=== PATIENT | male | born 1965 | race Hispanic/Latino ===

== ENCOUNTER → 2023-02-26 | Outpatient (CLI) | payer OTHER | LOC: US 07:19 | PROVIDERS: ATTEND Family Medicine | DX: I10 Essential (primary) hypertension (principal); R10.0 Acute abdomen | CPT/HCPCS: 71046; 76700 ==

== ENCOUNTER → 2023-03-25 | Outpatient (CLI) | payer OTHER | LOC: RAD 07:15 | PROVIDERS: ATTEND Family Medicine | DX: M25.562 Pain in left knee (principal); M25.561 Pain in right knee ==

== ENCOUNTER 2023-05-14 16:25 | Inpatient (IN) | payer OTHER ==
[~2023-05-14] VITALS: Ht 167.6 cm; Wt 129.4 kg
[2023-05-14 17:14] LABS: BASOPHILS % 0.2 % (0.0-1.0); EOSINOPHILS # (AUTO) 0.1 (0.0-0.4); EOSINOPHILS % 0.3 % (0.0-6.0); HEMATOCRIT 37.3 % (38.2-49.6); HEMOGLOBIN 12.9 g/dL (14.0-18.0); LYMPHOCYTES # (AUTO) 2.5 (1.0-3.2); LYMPHOCYTES % 13.8 % (18.0-39.1); MEAN CORPUSCULAR HEMOGLOBIN 33.5 pg (28-32); MEAN CORPUSCULAR HGB CONC 34.6 g/dL (31-35); MEAN CORPUSCULAR VOLUME 96.9 fL (81-99); MONOCYTES # (AUTO) 1.3 (0.2-0.8); MONOCYTES % 7.2 % (4.4-11.3); NEUTROPHILS # (AUTO) 14.3 (2.1-6.9); NEUTROPHILS % 77.7 % (38.7-80.0); PLATELET COUNT 203 x10e3/uL (140-360); RED BLOOD COUNT 3.85 x10e6/uL (4.3-5.7); RED CELL DISTRIBUTION WIDTH 13.1 % (11.7-14.4)
[2023-05-14] MEDS ORDERED: Vancomycin IV 1 GM in SODIUM CHLORIDE 0.9% 250ML 250 ML IV ONE (17:15)
[2023-05-14 17:23] LABS: INR 0.9; PROTHROMBIN TIME 12.7 seconds (11.9-14.5)
[2023-05-14 17:24] LABS: PARTIAL THROMBOPLASTIN TIME 26.4 seconds (23.8-35.5)
[2023-05-14 17:32] LABS: ALANINE AMINOTRANSFERASE 88 IU/L (0-55); ALBUMIN 3.5 g/dL (3.5-5.0); ALBUMIN/GLOBULIN RATIO 0.9 (0.8-2.0); ALKALINE PHOSPHATASE 74 IU/L (40-150); ANION GAP 17.9 mmol/L (8-16); BLOOD UREA NITROGEN 27 mg/dL (7-26); BUN/CREATININE RATIO 21 (6-25); CALCIUM 8.7 mg/dL (8.4-10.2); CARBON DIOXIDE 24 mmol/L (22-29); CHLORIDE 102 mmol/L (98-107); CREATINE KINASE 60 IU/L (30-200); CREATININE, SERUM 1.31 mg/dL (0.72-1.25); GLUCOSE 243 mg/dL (74-118); POTASSIUM 3.9 mmol/L (3.5-5.1); SODIUM 140 mmol/L (136-145)
[2023-05-14] MEDS ORDERED: SODIUM CHLORIDE FLUSH 10 ML SYR INJ PRN (18:15)
[2023-05-14] MEDS ORDERED: ONDANSETRON HCL INJ 2MG/ML 2ML 2 MG/ML VIAL IV PRN (18:15)
[2023-05-14 19:12] VITALS: PULSE 110; RESP 20; O2SAT 98
[2023-05-14 20:52] VITALS: BP 131/97; PULSE 100; RESP 20; TEMP 97.8; O2SAT 98
[2023-05-14 21:00] VITALS: BP 131/97; PULSE 100; RESP 20; TEMP 97.8; O2SAT 98
[2023-05-15] VITALS (9 sets, daily range): BP systolic 129–148; BP diastolic 90–99; PULSE 78–95; RESP 18–22; TEMP 97.3–98.4; O2SAT 96–99
[2023-05-15] MEDS ORDERED: COLCHICINE0.6 M1 PO (01:12)
[2023-05-15] MEDS ORDERED: LOSARTAN POTAS100 MG PO (01:12)
[2023-05-15] MEDS ORDERED: FUROSEMIDE20 MG PO (01:12)
[2023-05-15] MEDS ORDERED: LEVOTHYROXINE50 MCG PO (01:12)
[2023-05-15] MEDS ORDERED: ALLOPURINOL100 MG PO (01:12)
[2023-05-15] MEDS ORDERED: Vancomycin IV 1 GM in SODIUM CHLORIDE 0.9% 250ML 250 ML IV SCH (06:00)
[2023-05-15] MEDS ORDERED: Vancomycin IV 1 GM in SODIUM CHLORIDE 0.9% 250ML 250 ML IV ONE (06:00)
[2023-05-15 06:11] LABS: BASOPHILS % 0.2 % (0.0-1.0); EOSINOPHILS % 0.2 % (0.0-6.0); HEMATOCRIT 32.4 % (38.2-49.6); HEMOGLOBIN 11.1 g/dL (14.0-18.0); LYMPHOCYTES # (AUTO) 1.6 (1.0-3.2); LYMPHOCYTES % 13.3 % (18.0-39.1); MEAN CORPUSCULAR HEMOGLOBIN 33.2 pg (28-32); MEAN CORPUSCULAR HGB CONC 34.3 g/dL (31-35); MONOCYTES # (AUTO) 0.7 (0.2-0.8); NEUTROPHILS # (AUTO) 9.7 (2.1-6.9); NEUTROPHILS % 79.3 % (38.7-80.0); PLATELET COUNT 174 x10e3/uL (140-360); RED BLOOD COUNT 3.34 x10e6/uL (4.3-5.7); RED CELL DISTRIBUTION WIDTH 12.9 % (11.7-14.4)
[2023-05-15 07:02] LABS: CALCIUM 8.6 mg/dL (8.4-10.2); CREATININE, SERUM 0.98 mg/dL (0.72-1.25)
[2023-05-15 07:21] LABS: CREATINE KINASE 60 IU/L (30-200)
[2023-05-15] MEDS: FUROSEMIDE 20 MG TAB PO SCH (08:33)
[2023-05-15] MEDS: COLCHICINE 0.6 MG TAB PO SCH ×2 (08:34→16:28)
[2023-05-15] MEDS: PANTOPRAZOLE SOD 40 MG TABEC PO SCH (08:34)
[2023-05-15] MEDS: ALLOPURINOL 100 MG TAB PO SCH (08:34)
[2023-05-15] MEDS: LEVOTHYROXINE SODIUM 50 MCG TAB PO SCH (08:34)
[2023-05-15] MEDS: LOSARTAN POTASSIUM 100 MG TAB PO SCH (08:34)
[2023-05-15] MEDS: Vancomycin IV 1 GM in SODIUM CHLORIDE 0.9% 250ML 250 ML IV SCH (15:18)
[2023-05-16] VITALS (7 sets, daily range): BP systolic 121–160; BP diastolic 62–94; PULSE 71–110; RESP 18–22; TEMP 97.9–98.4; O2SAT 93–98
[2023-05-16] MEDS: Vancomycin IV 1 GM in SODIUM CHLORIDE 0.9% 250ML 250 ML IV SCH ×2 (04:11→16:09)
[2023-05-16] MEDS: MUPIROCIN 2% OINT 22 GM TUBE TOP SCH (08:48)
[2023-05-16] MEDS: FUROSEMIDE 20 MG TAB PO SCH (08:48)
[2023-05-16] MEDS: LEVOTHYROXINE SODIUM 50 MCG TAB PO SCH (08:48)
[2023-05-16] MEDS: PANTOPRAZOLE SOD 40 MG TABEC PO SCH (08:48)
[2023-05-16] MEDS: COLCHICINE 0.6 MG TAB PO SCH ×2 (08:48→16:09)
[2023-05-16] MEDS: LOSARTAN POTASSIUM 100 MG TAB PO SCH (08:49)
[2023-05-16] MEDS: ALLOPURINOL 100 MG TAB PO SCH (08:49)
[2023-05-16] MEDS: TRIAMCINOLONE ACET 0.1% CREAM 15 GM TUBE TOP SCH (11:55)
[2023-05-17] VITALS (7 sets, daily range): BP systolic 120–144; BP diastolic 68–92; PULSE 82–133; RESP 18–22; TEMP 98–98.9; O2SAT 95–100
[2023-05-17] MEDS: Vancomycin IV 1 GM in SODIUM CHLORIDE 0.9% 250ML 250 ML IV SCH ×2 (04:05→15:48)
[2023-05-17] MEDS: PANTOPRAZOLE SOD 40 MG TABEC PO SCH (09:06)
[2023-05-17] MEDS: LEVOTHYROXINE SODIUM 50 MCG TAB PO SCH (09:06)
[2023-05-17] MEDS: COLCHICINE 0.6 MG TAB PO SCH ×2 (09:07→15:56)
[2023-05-17] MEDS: LOSARTAN POTASSIUM 100 MG TAB PO SCH (09:07)
[2023-05-17] MEDS: FUROSEMIDE 20 MG TAB PO SCH (09:07)
[2023-05-17] MEDS: ALLOPURINOL 100 MG TAB PO SCH (09:07)
[2023-05-17] MEDS: TRIAMCINOLONE ACET 0.1% CREAM 15 GM TUBE TOP SCH (09:08)
[2023-05-17] MEDS: MUPIROCIN 2% OINT 22 GM TUBE TOP SCH (09:08)
[2023-05-18] VITALS (9 sets, daily range): BP systolic 97–136; BP diastolic 70–97; PULSE 100–118; RESP 18–22; TEMP 97.7–98.4; O2SAT 95–98
[2023-05-18] MEDS: Vancomycin IV 1 GM in SODIUM CHLORIDE 0.9% 250ML 250 ML IV SCH ×2 (04:06→17:18)
[2023-05-18] MEDS: LEVOTHYROXINE SODIUM 50 MCG TAB PO SCH (09:11)
[2023-05-18] MEDS: PANTOPRAZOLE SOD 40 MG TABEC PO SCH (09:11)
[2023-05-18] MEDS: COLCHICINE 0.6 MG TAB PO SCH ×2 (09:11→16:15)
[2023-05-18] MEDS: LOSARTAN POTASSIUM 100 MG TAB PO SCH (09:11)
[2023-05-18] MEDS: FUROSEMIDE 20 MG TAB PO SCH (09:12)
[2023-05-18] MEDS: ALLOPURINOL 100 MG TAB PO SCH (09:12)
[2023-05-18] MEDS: MUPIROCIN 2% OINT 22 GM TUBE TOP SCH (09:13)
[2023-05-18] MEDS: TRIAMCINOLONE ACET 0.1% CREAM 15 GM TUBE TOP SCH (09:13)
[2023-05-18] MEDS ORDERED: METOPROLOL TARTRATE INJ 1 MG/ML VIAL IV ONE (13:16)
[2023-05-18] MEDS ORDERED: ENOXAPARIN SODIUM INJ 100 MG/ML SYR SC ONE (13:16)
[2023-05-18] MEDS: HYDROCODONE/APAP 7.5MG-325MG 1 EA TAB PO PRN (14:10)
[2023-05-18 14:33] LABS: BASOPHILS % 0.5 % (0.0-1.0); EOSINOPHILS # (AUTO) 0.2 (0.0-0.4); HEMATOCRIT 39.8 % (38.2-49.6); HEMOGLOBIN 13.3 g/dL (14.0-18.0); LYMPHOCYTES # (AUTO) 2.5 (1.0-3.2); LYMPHOCYTES % 34.3 % (18.0-39.1); MEAN CORPUSCULAR HEMOGLOBIN 33.4 pg (28-32); MEAN CORPUSCULAR HGB CONC 33.4 g/dL (31-35); MONOCYTES # (AUTO) 0.9 (0.2-0.8); MONOCYTES % 12.2 % (4.4-11.3); NEUTROPHILS # (AUTO) 3.5 (2.1-6.9); NEUTROPHILS % 47.5 % (38.7-80.0); PLATELET COUNT 224 x10e3/uL (140-360); RED BLOOD COUNT 3.98 x10e6/uL (4.3-5.7); RED CELL DISTRIBUTION WIDTH 12.7 % (11.7-14.4)
[2023-05-18 14:49] LABS: ANION GAP 18.6 mmol/L (8-16); CALCIUM 9.7 mg/dL (8.4-10.2); CREATININE, SERUM 1.48 mg/dL (0.72-1.25); POTASSIUM 3.6 mmol/L (3.5-5.1)
[2023-05-19] VITALS (9 sets, daily range): BP systolic 97–128; BP diastolic 67–86; PULSE 107–117; RESP 18–20; TEMP 97.7–98.4; O2SAT 93–98
[2023-05-19] MEDS: Vancomycin IV 1 GM in SODIUM CHLORIDE 0.9% 250ML 250 ML IV SCH (03:53)
[2023-05-19] MEDS: PANTOPRAZOLE SOD 40 MG TABEC PO SCH (09:26)
[2023-05-19] MEDS: LEVOTHYROXINE SODIUM 50 MCG TAB PO SCH (09:26)
[2023-05-19] MEDS: COLCHICINE 0.6 MG TAB PO SCH ×2 (09:26→16:50)
[2023-05-19] MEDS: LOSARTAN POTASSIUM 100 MG TAB PO SCH (09:27)
[2023-05-19] MEDS: ALLOPURINOL 100 MG TAB PO SCH (09:27)
[2023-05-19] MEDS: FUROSEMIDE 20 MG TAB PO SCH (09:27)
[2023-05-19] MEDS: MUPIROCIN 2% OINT 22 GM TUBE TOP SCH (09:30)
[2023-05-19] MEDS: TRIAMCINOLONE ACET 0.1% CREAM 15 GM TUBE TOP SCH (09:31)
[2023-05-19 10:25] LABS: FREE THYROXINE INDEX 3.1865 (1.4-3.8); THYROID STIMULATING HORMONE 2.516 uIU/mL (0.350-4.940)
[2023-05-19] MEDS ORDERED: GLIMEPIRIDE 2 MG TAB PO ONE (11:30)
[2023-05-19] MEDS: INSULIN LISPRO 100 UNIT/1 ML 3ML VIAL SQ SCH ×3 (12:04→21:00)
[2023-05-19] MEDS ORDERED: ONDANSETRON HCL 4 MG ORAL DISINTEGRATING TAB PO PRN (13:15)
[2023-05-19] MEDS ORDERED: Vancomycin IV 1 GM in SODIUM CHLORIDE 0.9% 250ML 250 ML IV SCH (16:00)
[2023-05-19] MEDS: METFORMIN HCL 500 MG TAB PO SCH (16:50)
[2023-05-19] MEDS: ENOXAPARIN SOD INJ 40 MG/0.4 ML SYR SC SCH (16:51)
[2023-05-19] MEDS ORDERED: SITAGLIPTIN 100 MG TAB PO SCH (17:00)
[2023-05-19] MEDS ORDERED: ENOXAPARIN SOD INJ 40 MG/0.4 ML SYR SC SCH (17:00)
[2023-05-19] MEDS: HYDROCODONE/APAP 7.5MG-325MG 1 EA TAB PO PRN (17:03)
[2023-05-20] VITALS (8 sets, daily range): BP systolic 90–124; BP diastolic 62–76; PULSE 90–112; RESP 19–22; TEMP 97.7–98.8; O2SAT 96–99
[2023-05-20] MEDS: ENOXAPARIN SOD INJ 40 MG/0.4 ML SYR SC SCH ×2 (05:42→17:22)
[2023-05-20 06:18] LABS: ANION GAP 14.4 mmol/L (8-16); CALCIUM 8.7 mg/dL (8.4-10.2); CREATININE, SERUM 1.44 mg/dL (0.72-1.25); POTASSIUM 3.4 mmol/L (3.5-5.1)
[2023-05-20 06:57] LABS: CHOL/HDL RATIO 7.6 (3.9-4.7)
[2023-05-20] MEDS: INSULIN LISPRO 100 UNIT/1 ML 3ML VIAL SQ SCH ×4 (07:30→20:40)
[2023-05-20] MEDS: LOSARTAN POTASSIUM 100 MG TAB PO SCH (09:26)
[2023-05-20] MEDS: MUPIROCIN 2% OINT 22 GM TUBE TOP SCH (09:26)
[2023-05-20] MEDS: ALLOPURINOL 100 MG TAB PO SCH (09:27)
[2023-05-20] MEDS: COLCHICINE 0.6 MG TAB PO SCH ×2 (09:27→17:22)
[2023-05-20] MEDS: METFORMIN HCL 500 MG TAB PO SCH ×2 (09:27→17:22)
[2023-05-20] MEDS: LEVOTHYROXINE SODIUM 50 MCG TAB PO SCH (09:27)
[2023-05-20] MEDS: PANTOPRAZOLE SOD 40 MG TABEC PO SCH (09:27)
[2023-05-20] MEDS: ASPIRIN 81 MG CHEW TAB PO SCH (09:34)
[2023-05-20] MEDS: CARVEDILOL 12.5 MG TAB PO SCH ×2 (09:34→17:00)
[2023-05-20] MEDS: TRIAMCINOLONE ACET 0.1% CREAM 15 GM TUBE TOP SCH (09:36)
[2023-05-20] MEDS: FUROSEMIDE INJ 10 MG/ML 4 ML VIAL IV SCH ×2 (11:41→17:21)
[2023-05-20] MEDS: DOXYCYCLINE HYCLATE TABLET 100 MG TAB PO SCH ×2 (15:11→21:19)
[2023-05-20] MEDS: EZETIMIBE 10 MG TAB PO SCH (21:19)
[2023-05-20] MEDS: ATORVASTATIN 20 MG TAB PO SCH (21:19)
[2023-05-21] VITALS (13 sets, daily range): BP systolic 98–109; BP diastolic 56–85; PULSE 78–113; RESP 16–21; TEMP 97.7–98.7; O2SAT 96–99
[2023-05-21] MEDS: ENOXAPARIN SOD INJ 40 MG/0.4 ML SYR SC SCH ×2 (05:41→16:52)
[2023-05-21] MEDS: INSULIN LISPRO 100 UNIT/1 ML 3ML VIAL SQ SCH ×4 (07:30→20:41)
[2023-05-21] MEDS: COLCHICINE 0.6 MG TAB PO SCH ×2 (08:38→16:52)
[2023-05-21] MEDS: LEVOTHYROXINE SODIUM 50 MCG TAB PO SCH (08:38)
[2023-05-21] MEDS: ASPIRIN 81 MG CHEW TAB PO SCH (08:38)
[2023-05-21] MEDS: ALLOPURINOL 100 MG TAB PO SCH (08:39)
[2023-05-21] MEDS: CARVEDILOL 12.5 MG TAB PO SCH ×2 (08:39→16:53)
[2023-05-21] MEDS: FUROSEMIDE INJ 10 MG/ML 4 ML VIAL IV SCH ×2 (08:39→16:52)
[2023-05-21] MEDS: DOXYCYCLINE HYCLATE TABLET 100 MG TAB PO SCH ×2 (08:39→21:12)
[2023-05-21] MEDS: MUPIROCIN 2% OINT 22 GM TUBE TOP SCH (08:41)
[2023-05-21] MEDS: TRIAMCINOLONE ACET 0.1% CREAM 15 GM TUBE TOP SCH (08:41)
[2023-05-21] MEDS: LOSARTAN POTASSIUM 100 MG TAB PO SCH (08:45)
[2023-05-21] MEDS: PANTOPRAZOLE SOD 40 MG TABEC PO SCH (08:55)
[2023-05-21] MEDS: METFORMIN HCL 500 MG TAB PO SCH ×2 (08:55→16:52)
[2023-05-21] MEDS ORDERED: SODIUM CHLORIDE 0.9% 500ML 500 ML IV ONE (09:45)
[2023-05-21] MEDS ORDERED: HEPARIN SOD (PORCINE) 1000 UNIT/ML 30ML ONE (10:34)
[2023-05-21] MEDS ORDERED: LIDOCAINE HCL 2% LOCAL 20 ML VIAL ONE (10:34)
[2023-05-21] MEDS ORDERED: NITROGLYCERIN/D5W 200 MCG/ML 250 ML ONE (10:35)
[2023-05-21] MEDS ORDERED: IOPAMIDOL 370 MG/ML 100 ML INFUS..BTL INJ ONE (10:35)
[2023-05-21] MEDS ORDERED: SODIUM CHLORIDE 0.9% 1000ML 1,000 ML ONE (10:35)
[2023-05-21] MEDS ORDERED: HEPARIN SOD/SOD CHLORIDE 2,000 ML ONE (10:35)
[2023-05-21] MEDS ORDERED: VERAPAMIL HCL 2.5 MG/ML 2 ML VIAL ONE (10:54)
[2023-05-21] MEDS ORDERED: MIDAZOLAM HCL 2 MG/2 ML VIAL ONE (10:57)
[2023-05-21] MEDS ORDERED: FENTANYL CITRATE/PF 100MCG/2 ML INJ ONE (10:58)
[2023-05-21] MEDS: EZETIMIBE 10 MG TAB PO SCH (21:12)
[2023-05-21] MEDS: ATORVASTATIN 20 MG TAB PO SCH (21:12)
[2023-05-22] VITALS (8 sets, daily range): BP systolic 82–110; BP diastolic 57–83; PULSE 97–114; RESP 18–20; TEMP 97.5–98.4; O2SAT 95–100
[2023-05-22 05:41] LABS: BASOPHILS % 0.4 % (0.0-1.0); EOSINOPHILS # (AUTO) 0.3 (0.0-0.4); EOSINOPHILS % 5.2 % (0.0-6.0); HEMATOCRIT 35.9 % (38.2-49.6); HEMOGLOBIN 12.2 g/dL (14.0-18.0); LYMPHOCYTES # (AUTO) 1.4 (1.0-3.2); LYMPHOCYTES % 26.8 % (18.0-39.1); MEAN CORPUSCULAR HEMOGLOBIN 33.3 pg (28-32); MEAN CORPUSCULAR VOLUME 98.1 fL (81-99); MONOCYTES # (AUTO) 0.7 (0.2-0.8); MONOCYTES % 14.4 % (4.4-11.3); NEUTROPHILS # (AUTO) 2.7 (2.1-6.9); PLATELET COUNT 178 x10e3/uL (140-360); RED BLOOD COUNT 3.66 x10e6/uL (4.3-5.7); RED CELL DISTRIBUTION WIDTH 12.4 % (11.7-14.4)
[2023-05-22] MEDS: ENOXAPARIN SOD INJ 40 MG/0.4 ML SYR SC SCH ×2 (06:20→17:15)
[2023-05-22 06:22] LABS: ALBUMIN 3.2 g/dL (3.5-5.0); ALBUMIN/GLOBULIN RATIO 0.9 (0.8-2.0); CALCIUM 8.3 mg/dL (8.4-10.2); CREATININE, SERUM 1.72 mg/dL (0.72-1.25)
[2023-05-22] MEDS: INSULIN LISPRO 100 UNIT/1 ML 3ML VIAL SQ SCH ×4 (07:30→20:41)
[2023-05-22] MEDS ORDERED: POTASSIUM CHLORIDE 20 MEQ TAB CR PO ONE (08:15)
[2023-05-22] MEDS: CARVEDILOL 12.5 MG TAB PO SCH ×3 (09:00→17:00)
[2023-05-22] MEDS: PANTOPRAZOLE SOD 40 MG TABEC PO SCH (09:17)
[2023-05-22] MEDS: DOXYCYCLINE HYCLATE TABLET 100 MG TAB PO SCH ×2 (09:17→20:42)
[2023-05-22] MEDS: POTASSIUM CHLORIDE 20 MEQ TAB CR PO SCH ×2 (09:17→11:25)
[2023-05-22] MEDS: LEVOTHYROXINE SODIUM 50 MCG TAB PO SCH (09:17)
[2023-05-22] MEDS: ASPIRIN 81 MG CHEW TAB PO SCH (09:17)
[2023-05-22] MEDS: METFORMIN HCL 500 MG TAB PO SCH ×2 (09:18→17:15)
[2023-05-22] MEDS: ALLOPURINOL 100 MG TAB PO SCH (09:18)
[2023-05-22] MEDS: LOSARTAN POTASSIUM 100 MG TAB PO SCH (09:18)
[2023-05-22] MEDS: MUPIROCIN 2% OINT 22 GM TUBE TOP SCH (09:21)
[2023-05-22] MEDS: TRIAMCINOLONE ACET 0.1% CREAM 15 GM TUBE TOP SCH (09:21)
[2023-05-22] MEDS ORDERED: SODIUM CHLORIDE 0.9% 250ML 250 ML ONE (11:42)
[2023-05-22] MEDS ORDERED: SODIUM CHLORIDE 0.9% 250ML 250 ML IV ONE (11:45)
[2023-05-22] MEDS ORDERED: SODIUM CHLORIDE 0.9% 250ML 200 ML IV ONE (12:15)
[2023-05-22] MEDS ORDERED: SODIUM CHLORIDE 0.9% 250ML 250 ML IV SCH (14:00)
[2023-05-23 00:58] VITALS: BP 108/82; PULSE 109; RESP 19; TEMP 98.4; O2SAT 97
[2023-05-23] MEDS: ENOXAPARIN SOD INJ 40 MG/0.4 ML SYR SC SCH ×2 (05:54→17:48)
[2023-05-23 06:45] VITALS: BP 97/64; PULSE 110; RESP 16; TEMP 98.3; O2SAT 96
[2023-05-23] MEDS: INSULIN LISPRO 100 UNIT/1 ML 3ML VIAL SQ SCH ×3 (07:30→16:09)
[2023-05-23] MEDS ORDERED: DOXYCYCLINE HY100 MG PO (08:01)
[2023-05-23] MEDS ORDERED: METFORMIN HCL500 MG PO (08:01)
[2023-05-23] MEDS ORDERED: ASPIRIN CHEW81 MG PO (08:01)
[2023-05-23] MEDS ORDERED: PANTOPRAZOLE SO40 MG PO (08:01)
[2023-05-23] MEDS: DOXYCYCLINE HYCLATE TABLET 100 MG TAB PO SCH (08:15)
[2023-05-23] MEDS: LOSARTAN POTASSIUM 100 MG TAB PO SCH (08:16)
[2023-05-23] MEDS: LEVOTHYROXINE SODIUM 50 MCG TAB PO SCH (08:16)
[2023-05-23] MEDS: ALLOPURINOL 100 MG TAB PO SCH (08:16)
[2023-05-23] MEDS: CARVEDILOL 12.5 MG TAB PO SCH (08:17)
[2023-05-23] MEDS: ASPIRIN 81 MG CHEW TAB PO SCH (08:17)
[2023-05-23] MEDS: METFORMIN HCL 500 MG TAB PO SCH ×2 (08:18→17:42)
[2023-05-23] MEDS: PANTOPRAZOLE SOD 40 MG TABEC PO SCH (08:18)
[2023-05-23] MEDS: TRIAMCINOLONE ACET 0.1% CREAM 15 GM TUBE TOP SCH (08:19)
[2023-05-23 08:30] VITALS: BP 111/80; PULSE 108; RESP 20; TEMP 98.2; O2SAT 97
[2023-05-23 08:31] VITALS: BP 97/64; PULSE 110; RESP 16; TEMP 98.3; O2SAT 96
[2023-05-23] MEDS ORDERED: FUROSEMIDE 40 MG TAB PO SCH (09:00)
[2023-05-23 11:30] LABS: ANION GAP 19.8 mmol/L (8-16); CALCIUM 8.2 mg/dL (8.4-10.2); CREATININE, SERUM 1.67 mg/dL (0.72-1.25); POTASSIUM 3.8 mmol/L (3.5-5.1)
[2023-05-23 12:31] VITALS: BP 98/70; PULSE 104; RESP 20; TEMP 97.7; O2SAT 98
[2023-05-23 15:50] VITALS: BP 96/74; PULSE 103; RESP 20; TEMP 97.8; O2SAT 96
[2023-05-23] MEDS ORDERED: COZAAR100 MG PO (18:34)
[2023-05-23] MEDS ORDERED: COREG3.125 MG PO (18:34)
[2023-05-24] MEDS ORDERED: FUROSEMIDE 40 MG TAB PO SCH (09:00)
[2023-05-24] MEDS ORDERED: FUROSEMIDE 20 MG TAB PO SCH (09:00)
[2023-05-24] MEDS ORDERED: CARVEDILOL 3.125 MG TAB PO SCH (09:00)
[2023-05-24] MEDS ORDERED: CARVEDILOL 12.5 MG TAB PO SCH (09:00)
[2023-05-24] MEDS ORDERED: LOSARTAN POTASSIUM 100 MG TAB PO SCH (09:00)
== END 2023-05-23 21:01 | disposition home or self-care (01) | DRG 871 ==
LOC: ER 16:29 → ERHOLD 18:06 → MED/SURG2 19:24
PROVIDERS: ADMIT Internal Medicine; ATTEND Internal Medicine
PROC: 3E03329 Introduction of Other Anti-infective into Peripheral Vein, Percutaneous Approach (ICD-10-PCS; 2023-05-15)
PROC: 02HV33Z Insertion of Infusion Device into Superior Vena Cava, Percutaneous Approach (ICD-10-PCS; 2023-05-17)
PROC: 3E0F7SF Introduction of Other Gas into Respiratory Tract, Via Natural or Artificial Opening (ICD-10-PCS; 2023-05-19)
PROC: B548ZZA Ultrasonography of Superior Vena Cava, Guidance (ICD-10-PCS; 2023-05-19)
PROC: 4A023N7 Measurement of Cardiac Sampling and Pressure, Left Heart, Percutaneous Approach (ICD-10-PCS; principal; 2023-05-21)
PROC: B2111ZZ Fluoroscopy of Multiple Coronary Arteries using Low Osmolar Contrast (ICD-10-PCS; 2023-05-21)
DX: A41.9 Sepsis, unspecified organism (principal); I50.33 Acute on chronic diastolic (congestive) heart failure; I13.0 Hypertensive heart and chronic kidney disease with heart failure and stage 1 through stage 4 chronic kidney disease, or unspecified chronic kidney disease; N17.9 Acute kidney failure, unspecified; L03.116 Cellulitis of left lower limb; L03.115 Cellulitis of right lower limb; Z68.42 Body mass index [BMI] 45.0-49.9, adult; L97.828 Non-pressure chronic ulcer of other part of left lower leg with other specified severity; I25.10 Atherosclerotic heart disease of native coronary artery without angina pectoris; N18.9 Chronic kidney disease, unspecified; E11.22 Type 2 diabetes mellitus with diabetic chronic kidney disease; E66.01 Morbid (severe) obesity due to excess calories; R94.5 Abnormal results of liver function studies; E03.9 Hypothyroidism, unspecified; N40.0 Benign prostatic hyperplasia without lower urinary tract symptoms; M10.9 Gout, unspecified; R60.0 Localized edema; R00.0 Tachycardia, unspecified; D64.9 Anemia, unspecified; J30.9 Allergic rhinitis, unspecified; E11.65 Type 2 diabetes mellitus with hyperglycemia; R06.00 Dyspnea, unspecified; R53.81 Other malaise; R07.89 Other chest pain; R53.1 Weakness; E87.70 Fluid overload, unspecified; Z79.82 Long term (current) use of aspirin; Z79.899 Other long term (current) drug therapy; Z20.822 Contact with and (suspected) exposure to COVID-19
CPT/HCPCS: 0223U; 36415; 36569; 71045; 71046; 78580; 80048; 80053; 80061; 80202; 82533; 82550; 82948; 83036; 83605; 83880; 84436; 84443; 84479; 84484; 85025; 85379; 85610; 85730; 87040; 93005; 93306; 93458; 93970; 94799; 99152; 99252; 99284; A9540; C1725; C1887; C1894; J0692; J1644; J1650; J1940; J2001; J2250; J2543; J7030; J7040; J7050; Q9967

== ENCOUNTER 2023-05-29 15:45 | Inpatient (IN) | payer OTHER ==
[~2023-05-29] VITALS: Ht 167.6 cm; Wt 129.3 kg
[~2023-05-29 15:45] MED LIST: ALLOPURINOL100 MG PO; ASPIRIN CHEW81 MG PO; COLCHICINE0.6 M1 PO; COREG3.125 MG PO; COZAAR100 MG PO; DOXYCYCLINE HY100 MG PO; FUROSEMIDE20 MG PO; LEVOTHYROXINE50 MCG PO; LOSARTAN POTAS100 MG PO; METFORMIN HCL500 MG PO; PANTOPRAZOLE SO40 MG PO
[2023-05-29] MEDS ORDERED: ONDANSETRON HCL INJ 2MG/ML 2ML 2 MG/ML VIAL IV STA (16:08)
[2023-05-29] MEDS ORDERED: SODIUM CHLORIDE 0.9% 1000ML 1,000 ML IV ONE ×2 (16:15→18:00)
[2023-05-29 16:25] LABS: BASOPHILS # (AUTO) 0.1 (0.0-0.1); BASOPHILS % 1.1 % (0.0-1.0); EOSINOPHILS # (AUTO) 0.4 (0.0-0.4); EOSINOPHILS % 6.4 % (0.0-6.0); HEMATOCRIT 34.9 % (38.2-49.6); HEMOGLOBIN 12.2 g/dL (14.0-18.0); LYMPHOCYTES # (AUTO) 2.3 (1.0-3.2); LYMPHOCYTES % 37.2 % (18.0-39.1); MEAN CORPUSCULAR HEMOGLOBIN 32.6 pg (28-32); MEAN CORPUSCULAR VOLUME 93.3 fL (81-99); MONOCYTES # (AUTO) 0.9 (0.2-0.8); MONOCYTES % 13.7 % (4.4-11.3); NEUTROPHILS # (AUTO) 2.5 (2.1-6.9); NEUTROPHILS % 40.6 % (38.7-80.0); PLATELET COUNT 299 x10e3/uL (140-360); RED BLOOD COUNT 3.74 x10e6/uL (4.3-5.7); RED CELL DISTRIBUTION WIDTH 13.1 % (11.7-14.4)
[2023-05-29 16:40] LABS: ALBUMIN 3.4 g/dL (3.5-5.0); ANION GAP 20.4 mmol/L (8-16); CALCIUM 8.1 mg/dL (8.4-10.2); CREATININE, SERUM 2.42 mg/dL (0.72-1.25); POTASSIUM 3.4 mmol/L (3.5-5.1)
[2023-05-29] MEDS ORDERED: CEFTRIAXONE 1 GM VIAL IV ONE (17:00)
[2023-05-29] MEDS ORDERED: ONDANSETRON HCL INJ 2MG/ML 2ML 2 MG/ML VIAL IV PRN (18:15)
[2023-05-29 21:00] VITALS: BP 91/56; PULSE 103; RESP 22; TEMP 98.3; O2SAT 99
[2023-05-29] MEDS: SODIUM CHLORIDE 0.9% 1000ML 1,000 ML IV SCH (21:37)
[2023-05-29 22:00] VITALS: BP 97/60; PULSE 103; RESP 24; TEMP 98.3; O2SAT 99
[2023-05-30] VITALS (7 sets, daily range): BP systolic 87–115; BP diastolic 48–66; PULSE 98–116; RESP 18–22; TEMP 97.7–98.3; O2SAT 95–100
[2023-05-30 03:09] LABS: COLOR,URINE YELLOW (YELLOW); LEUKOCYTE ESTERASE ,URINE NEGATIVE (NEGATIVE); NITRITE,URINE NEGATIVE (NEGATIVE); PROTEIN,URINE DIPSTICK NEGATIVE (NEGATIVE)
[2023-05-30 03:10] LABS: CLARITY,URINE SL CLOUDY (CLEAR); KETONES,URINE 1+ (NEGATIVE); URINE UROBILINOGEN 0.2 mg/dL (0.2 - 1)
[2023-05-30 03:51] LABS: BACTERIA,URINE MANY /HPF; EPITHELIAL CELLS,URINE MODERATE /LPF; MUCUS,URINE FEW (RARE)
[2023-05-30] MEDS: SODIUM CHLORIDE 0.9% 1000ML 1,000 ML IV SCH ×3 (04:58→17:23)
[2023-05-30 08:30] LABS: BASOPHILS # (AUTO) 0.1 (0.0-0.1); BASOPHILS % 1.4 % (0.0-1.0); EOSINOPHILS # (AUTO) 0.4 (0.0-0.4); HEMATOCRIT 31.5 % (38.2-49.6); HEMOGLOBIN 10.8 g/dL (14.0-18.0); LYMPHOCYTES # (AUTO) 2.3 (1.0-3.2); MEAN CORPUSCULAR HEMOGLOBIN 33.5 pg (28-32); MEAN CORPUSCULAR HGB CONC 34.3 g/dL (31-35); MEAN CORPUSCULAR VOLUME 97.8 fL (81-99); MONOCYTES # (AUTO) 0.9 (0.2-0.8); NEUTROPHILS # (AUTO) 1.8 (2.1-6.9); NEUTROPHILS % 31.9 % (38.7-80.0); PLATELET COUNT 249 x10e3/uL (140-360); RED BLOOD COUNT 3.22 x10e6/uL (4.3-5.7); RED CELL DISTRIBUTION WIDTH 13.1 % (11.7-14.4)
[2023-05-30 08:58] LABS: ALBUMIN 2.7 g/dL (3.5-5.0); ALBUMIN/GLOBULIN RATIO 1.1 (0.8-2.0); ANION GAP 14.6 mmol/L (8-16); CALCIUM 7.4 mg/dL (8.4-10.2); CREATININE, SERUM 1.76 mg/dL (0.72-1.25); POTASSIUM 3.6 mmol/L (3.5-5.1)
[2023-05-30] MEDS ORDERED: DEXTROSE 50% SYRINGE 50 ML IV PRN (16:00)
[2023-05-30] MEDS: INSULIN LISPRO 100 UNIT/1 ML 3ML VIAL SQ SCH ×2 (16:30→19:59)
[2023-05-30] MEDS ORDERED: CEFTRIAXONE 1 GM VIAL IM ONE (23:30)
[2023-05-31] VITALS (7 sets, daily range): BP systolic 108–136; BP diastolic 58–83; PULSE 87–117; RESP 20–22; TEMP 97.8–98.8; O2SAT 96–100
[2023-05-31] MEDS: SODIUM CHLORIDE 0.9% 1000ML 1,000 ML IV SCH ×2 (05:52→18:34)
[2023-05-31 07:16] LABS: BASOPHILS # (AUTO) 0.1 (0.0-0.1); BASOPHILS % 1.2 % (0.0-1.0); EOSINOPHILS # (AUTO) 0.5 (0.0-0.4); EOSINOPHILS % 9.1 % (0.0-6.0); HEMATOCRIT 31.6 % (38.2-49.6); LYMPHOCYTES # (AUTO) 1.9 (1.0-3.2); LYMPHOCYTES % 35.8 % (18.0-39.1); MEAN CORPUSCULAR HEMOGLOBIN 33.2 pg (28-32); MEAN CORPUSCULAR HGB CONC 34.8 g/dL (31-35); MEAN CORPUSCULAR VOLUME 95.5 fL (81-99); MONOCYTES # (AUTO) 0.9 (0.2-0.8); MONOCYTES % 16.4 % (4.4-11.3); NEUTROPHILS # (AUTO) 1.9 (2.1-6.9); NEUTROPHILS % 36.5 % (38.7-80.0); PLATELET COUNT 259 x10e3/uL (140-360); RED BLOOD COUNT 3.31 x10e6/uL (4.3-5.7); RED CELL DISTRIBUTION WIDTH 13.2 % (11.7-14.4)
[2023-05-31] MEDS: INSULIN LISPRO 100 UNIT/1 ML 3ML VIAL SQ SCH ×4 (07:30→20:50)
[2023-05-31 08:02] LABS: ANION GAP 17.4 mmol/L (8-16); CALCIUM 7.4 mg/dL (8.4-10.2); CREATININE, SERUM 1.2 mg/dL (0.72-1.25); POTASSIUM 3.4 mmol/L (3.5-5.1)
[2023-06-01 00:39] VITALS: BP 111/71; PULSE 116; RESP 21; TEMP 98.3; O2SAT 96
[2023-06-01] MEDS: SODIUM CHLORIDE 0.9% 1000ML 1,000 ML IV SCH (01:09)
[2023-06-01 04:07] VITALS: BP 118/54; PULSE 110; RESP 21; TEMP 98.4; O2SAT 94
[2023-06-01 06:05] LABS: BASOPHILS # (AUTO) 0.1 (0.0-0.1); BASOPHILS % 1.4 % (0.0-1.0); EOSINOPHILS # (AUTO) 0.5 (0.0-0.4); EOSINOPHILS % 8.6 % (0.0-6.0); HEMATOCRIT 33.7 % (38.2-49.6); HEMOGLOBIN 11.5 g/dL (14.0-18.0); LYMPHOCYTES # (AUTO) 2.4 (1.0-3.2); MEAN CORPUSCULAR HEMOGLOBIN 32.8 pg (28-32); MEAN CORPUSCULAR HGB CONC 34.1 g/dL (31-35); MONOCYTES # (AUTO) 0.8 (0.2-0.8); MONOCYTES % 14.6 % (4.4-11.3); NEUTROPHILS # (AUTO) 1.9 (2.1-6.9); NEUTROPHILS % 32.5 % (38.7-80.0); PLATELET COUNT 296 x10e3/uL (140-360); RED BLOOD COUNT 3.51 x10e6/uL (4.3-5.7); RED CELL DISTRIBUTION WIDTH 13.2 % (11.7-14.4)
[2023-06-01 06:36] LABS: ANION GAP 14.4 mmol/L (8-16); CALCIUM 7.6 mg/dL (8.4-10.2); CREATININE, SERUM 1.07 mg/dL (0.72-1.25); POTASSIUM 3.4 mmol/L (3.5-5.1)
[2023-06-01] MEDS ORDERED: LEVOTHYROXINE SODIUM 50 MCG TAB PO SCH (07:30)
[2023-06-01] MEDS: INSULIN LISPRO 100 UNIT/1 ML 3ML VIAL SQ SCH ×2 (07:30→11:30)
[2023-06-01 08:33] VITALS: BP 129/73; PULSE 119; RESP 19; TEMP 98.5; O2SAT 96
[2023-06-01] MEDS ORDERED: ASPIRIN 81 MG CHEW TAB PO SCH (09:00)
[2023-06-01] MEDS ORDERED: LOSARTAN POTASSIUM 100 MG TAB PO SCH (09:00)
[2023-06-01] MEDS ORDERED: CARVEDILOL 3.125 MG TAB PO SCH (09:00)
[2023-06-01] MEDS ORDERED: PANTOPRAZOLE SOD 40 MG TABEC PO SCH (09:00)
[2023-06-01] MEDS ORDERED: ALLOPURINOL 100 MG TAB PO SCH (09:00)
[2023-06-01 09:03] VITALS: BP 129/73; PULSE 119; RESP 19; TEMP 98.5; O2SAT 96
[2023-06-01 12:13] VITALS: BP 99/57; PULSE 104; RESP 20; TEMP 97.9; O2SAT 100
== END 2023-06-01 13:21 | disposition home or self-care (01) | DRG 683 ==
LOC: ER 15:53 → ERHOLD 18:18 → MED/SURG3 21:23 → OBSVTOIN 06-01 08:12
PROVIDERS: ADMIT Internal Medicine; ATTEND Internal Medicine
DX: N17.9 Acute kidney failure, unspecified (principal); I50.32 Chronic diastolic (congestive) heart failure; Z68.42 Body mass index [BMI] 45.0-49.9, adult; E87.6 Hypokalemia; K21.9 Gastro-esophageal reflux disease without esophagitis; I25.10 Atherosclerotic heart disease of native coronary artery without angina pectoris; E78.5 Hyperlipidemia, unspecified; E66.01 Morbid (severe) obesity due to excess calories; E11.9 Type 2 diabetes mellitus without complications; E86.1 Hypovolemia; E03.9 Hypothyroidism, unspecified; I11.0 Hypertensive heart disease with heart failure; M10.9 Gout, unspecified; N40.0 Benign prostatic hyperplasia without lower urinary tract symptoms; Z79.82 Long term (current) use of aspirin; Z79.899 Other long term (current) drug therapy; Z20.822 Contact with and (suspected) exposure to COVID-19
CPT/HCPCS: 36415; 71046; 80048; 80053; 81001; 82533; 82948; 83605; 83690; 85025; 87040; 93005; 96361; 99284; G0378; J0696; J2405; J7030